=== PATIENT | female | born 1985 | race Caucasian/White ===

== ENCOUNTER 2016-08-01 20:29 | Emergency (ER) | payer MEDICAID ==
[~2016-08-01] VITALS: Ht 172.7 cm; Wt 100.0 kg
[~2016-08-01 20:29] MED LIST: ADDE10 PO; BUSP10TA PO; CYCL5TAB PO; HYDR25TA5 PO; LORA-520 PO; MOBI15TA PO; TOVI4TAB PO; TRAM50TA PO; VENTAER INH
[2016-08-01 20:30] VITALS: BP 180/107; PULSE 83; RESP 18; TEMP 97.7; O2SAT 100
[2016-08-01] MEDS ORDERED: LEVO750T3 PO (22:01)
[2016-08-01] MEDS ORDERED: SODIUM CHLOR 0.9% 1000 ML INJ 1,000 ML IV ONE (22:11)
--- NOTE | 2016-08-01 22:11 | PD ---
HPI Chief Complaint: Flank/Kidney Pain Time Seen by Provider: 22:11 Travel History International Travel<30 days: No Contact w/Intl Traveler<30days: No Traveled to known affect area: No History of Present Illness HPI 30 YO F with PMH of kidney stones presents to the ED for evaluation of 3 day history of 9/10 right-sided flank pain accompanied by nausea, dysuria and increased urgency. Patient denies fever, chills, vomiting, abdominal pain, changes in bowel habits. She saw her primary care provider 3 days ago and was placed on levofloxacin with no improvement of symptoms. PFSH Past Medical History Autoimmune Disease: No Blood Disorders: No Anxiety: Yes Depression: Yes Cancer: No Cardiovascular Problems: No Diminished Hearing: No Gastrointestinal Disorders: Yes GERD: Yes Genitourinary: Yes (RIGHT KIDNEY REFLUX, UTI) Headaches: Yes Hypertension: Yes Immune Disorder: No Implanted Vascular Access Dvce: No Kidney Stones: Yes Musculoskeletal: Yes (hx of right side lower back pain) Neurologic: No Psychiatric: No Reproductive: No Respiratory: No Immunizations Current: Yes Influenza Vaccination: No PNEUMOCCOCAL Vaccine (Year): 2 ?: Not : 1 Para: 1 Miscarriage: 0 : 0 Past Surgical History Surgical History: No Previous Surgery Other Surgery: No Social History Alcohol Use: No Tobacco Use: No (quit 2011 smoked 2 ppd cigs for 1 1/2 yrs) Substance Use: No Allergies-Medications (Allergen,Severity, Reaction): Coded Allergies: Penicillin (Verified Allergy, Severe, 06/25/16) Adhesives (Verified Allergy, Intermediate, rash, 06/25/16) Cipro (Unverified Allergy, Intermediate, hives, 06/25/16) Reported Meds & Prescriptions Reported Meds & Active Scripts Active Tramadol (Tramadol HCl) 50 Mg Tab 50 Mg PO Q8H PRN Bactrim DS (Sulfamethoxazole-Trimethoprim) 800-160 Mg Tab 1 Tab PO BID Toviaz ER (Fesoterodine Fumarate) 4 mg Ambrocio 4 Mg PO DAILY Reported Levofloxacin 750 Mg Tablet 750 Mg PO DAILY Adderall (Amphetamine-Dextroamphetamine) 10 Mg Tab 10 Mg PO DAILY Avoid late evening doses. Space doses at least 4 to 6 hours if more than once/day dosing. Buspirone (Buspirone HCl) 10 Mg Tab 10 Mg PO TID Hydrochlorothiazide 25 Mg Tab 25 Mg PO DAILY Mobic (Meloxicam) 15 Mg Tab 15 Mg PO DAILY Ventolin Hfa 18 GM Inh (Albuterol Sulfate) 90 Mcg/Act Aer 2 Puff INH Q4-6H PRN Allergy (Loratadine) 10 Mg Tab 10 Mg PO DAILY Review of Systems Except as stated in HPI: all other systems reviewed are Neg Physical Exam Narrative GENERAL: Well-nourished, well-developed obese white female in no acute distress. SKIN: Focused skin assessment warm/dry. HEAD: Normocephalic. EYES: No scleral icterus. No injection or drainage. NECK: Supple, trachea midline. No JVD or lymphadenopathy. CARDIOVASCULAR: Regular rate and rhythm without murmurs, gallops, or rubs. RESPIRATORY: Breath sounds equal bilaterally. No accessory muscle use. GASTROINTESTINAL: Abdomen soft, non-tender, nondistended. No suprapubic tenderness. Active bowel sounds. MUSCULOSKELETAL: No cyanosis, or edema. BACK: Nontender without obvious deformity. ++ Right-sided ankle pain and CVA tenderness. Data Data Last Documented VS Vital Signs Date Time Temp Pulse Resp B/P Pulse Ox O2 Delivery O2 Flow Rate FiO2 08/01/16 20:30 97.7 83 18 180/107 100 Room Air Orders Urinalysis - C+S If Indicated (08/01/16 21:21) Ed Urine Pregnancytest Poc (08/01/16 21:21) Complete Blood Count With Diff (08/01/16 22:11) Comprehensive Metabolic Panel (08/01/16 22:11) Ct Abd/Pel W/O Iv Contrast (08/01/16 22:11) Ecg Monitoring (08/01/16 22:11) Iv Access Insert/Monitor (08/01/16 22:11) Morphine Inj (Morphine Inj) (08/01/16 22:15) Ondansetron Inj (Zofran Inj) (08/01/16 22:15) Sodium Chloride 0.9% Flush (Ns Flush) (08/01/16 22:15) Sodium Chlor 0.9% 1000 Ml Inj (Ns 1000 M (08/01/16 22:11) Ketorolac Inj (Toradol Inj) (08/01/16 23:15) Labs Laboratory Tests Test 08/01/16 22:00 White Blood Count 11.5 TH/MM3 Red Blood Count 4.50 MIL/MM3 Hemoglobin 12.4 GM/DL Hematocrit 38.1 % Mean Corpuscular Volume 84.5 FL Mean Corpuscular Hemoglobin 27.6 PG Mean Corpuscular Hemoglobin 32.7 % Concent Red Cell Distribution Width 13.6 % Platelet Count 280 TH/MM3 Mean Platelet Volume 7.3 FL Neutrophils (%) (Auto) 60.0 % Lymphocytes (%) (Auto) 31.9 % Monocytes (%) (Auto) 6.8 % Eosinophils (%) (Auto) 1.1 % Basophils (%) (Auto) 0.2 % Neutrophils # (Auto) 6.9 TH/MM3 Lymphocytes # (Auto) 3.7 TH/MM3 Monocytes # (Auto) 0.8 TH/MM3 Eosinophils # (Auto) 0.1 TH/MM3 Basophils # (Auto) 0.0 TH/MM3 CBC Comment DIFF FINAL Differential Comment Urine Color YELLOW Urine Turbidity HAZY Urine pH 6.0 Urine Specific [place] 1.031 Urine Protein 30 mg/dL Urine Glucose (UA) NEG mg/dL Urine Ketones NEG mg/dL Urine Occult Blood LARGE Urine Nitrite NEG Urine Bilirubin NEG Urine Urobilinogen LESS THAN 2.0 MG/DL Urine Leukocyte Esterase SMALL Urine RBC /hpf Urine WBC 1 /hpf Urine Squamous Epithelial 1 /hpf Cells Urine Mucus FEW /lpf Microscopic Urinalysis Comment CULT NOT INDICATED Sodium Level 141 MEQ/L Potassium Level 3.7 MEQ/L Chloride Level 107 MEQ/L Carbon Dioxide Level 26.8 MEQ/L Anion Gap 7 MEQ/L Blood Urea Nitrogen 11 MG/DL Creatinine 0.79 MG/DL Estimat Glomerular Filtration 87 ML/MIN Rate Random Glucose 94 MG/DL Calcium Level 8.5 MG/DL Total Bilirubin 0.3 MG/DL Aspartate Amino Transf 12 U/L (AST/SGOT) Alanine Aminotransferase 25 U/L (ALT/SGPT) Alkaline Phosphatase 77 U/L Total Protein 7.4 GM/DL Albumin 3.7 GM/DL [facility] Medical Decision Making Medical Screen Exam Complete: Yes Emergency Medical Condition: Yes Differential Diagnosis Cystitis versus pyelonephritis versus nephroureterolithiasis versus other Narrative Course 30 YO F with PMH of kidney stones presents to the ED for evaluation of 3 day history of 9/10 right-sided flank pain accompanied by nausea, dysuria and increased urgency. Patient denies fever, chills, vomiting, abdominal pain, changes in bowel habits. She saw her primary care provider 3 days ago and was placed on levofloxacin with no improvement of symptoms. Vitals reviewed. Physical exam reveals an obese white female with right flank tenderness, otherwise unremarkable. She was administered 4 mg morphine, 4 mg Zofran and 1 L normal saline bolus IV. No concerning underwent always a CBC or CMP. UA with innumerable red blood cells, no culture indicated. CT reveals no hydronephrosis, ureteral dilatation or stone. I discussed the patient with Dr. Driscoll. He recommends discontinuing the Levaquin, initiating Septra, a brief course of pain medications and outpatient follow-up. I discussed the results of the workup with the patient and the plan for care. She is instructed take medication as prescribed, return for worsening symptoms, otherwise follow up with primary care provider. She indicated understanding of instructions and is agreeable care plan. Patient is stable and discharged home. Diagnosis Primary Impression: Right flank pain Additional Impression: Hematuria Referrals: Primary Care Physician Patient Instructions: Flank Pain (ED), General Instructions Additional Instructions: Rest, hydrate. Take antibiotics as prescribed. Take pain medications as prescribed. Do not drive while taking pain medications. Follow up with the primary care provider on Thursday. Return to the ED for worsening symptoms or any urgent or emergent medical condition. Med/Other Pt SpecificInfo: Prescription(s) given Scripts Tramadol 50 Mg Tab50 Mg PO Q8H PRN (PAIN) #15 TAB Ref 0 Prov:Dominguez Driscoll MD 08/01/16 Sulfamethoxazole-Trimethoprim (Bactrim DS)800-160 Mg Tab1 Tab PO BID #14 TAB Ref 0 Prov:Dominguez Driscoll MD 08/01/16 Disposition: 01 DISCHARGE HOME Condition: Stable Shreya Adame Aug 01, 2016 22:11
[2016-08-01] MEDS ORDERED: SODIUM CHLORIDE 0.9% FLUSH 10 ML FLUSH IVF PRN (22:15)
[2016-08-01] MEDS ORDERED: MORPHINE SULFATE 4 MG/ML INJ IV ONE (22:15)
[2016-08-01] MEDS ORDERED: ONDANSETRON HCL 4 MG/2 ML VIAL IVP ONE (22:15)
[2016-08-01 22:37] LABS: BLOOD, URINE LARGE (NEG); COMMENT (UR) CULT NOT INDICATED; CULTURE IF INDICATED CULT NOT INDICATED; GLUCOSE,URINE NEG (NEG); KETONE, URINE NEG (NEG); MUCUS URINE FEW /lpf (OCC); NITRITE,URINE NEG (NEG); SQUAMOUS EPITHELIAL CELL URINE 1 /hpf (0-5); URINE COLOR YELLOW (YELLW/STRAW)
[2016-08-01 22:40] LABS: AUTOMATED NEUTROPHIL # 6.9 TH/MM3 (1.8-7.7); BASOPHIL % 0.2 % (0.0-2.0); EOSINOPHIL # 0.1 TH/MM3 (0-0.4); EOSINOPHIL % 1.1 % (0.0-4.0); HEMATOCRIT 38.1 % (35.0-46.0); HEMO FLAGS DIFF FINAL; LYMPH % 31.9 % (9.0-44.0); LYMPHOCYTE # 3.7 TH/MM3 (1.0-4.8); MEAN CELL VOLUME 84.5 FL (80.0-100.0); MEAN CORPUSCULAR HEMOGLOBIN 27.6 PG (27.0-34.0); MEAN CORPUSCULAR HGB CONC 32.7 % (32.0-36.0); MONO % 6.8 % (0.0-8.0); PLATELET COUNT 280 TH/MM3 (150-450); RED CELL DISTRIBUTION WIDTH 13.6 % (11.6-17.2); WHITE BLOOD COUNT 11.5 TH/MM3 (4.0-11.0)
--- NOTE | 2016-08-01 22:54 | RADRPT ---
EXAM DATE/TIME: 08/01/2016 22:20 [facility] COMPARISON: CT ABDOMEN & PELVIS W/O CONTRAST, November 12, 2015, 21:31. INDICATIONS : Right flank pain. ORAL CONTRAST: No oral contrast ingested. RADIATION DOSE: 17.03 CTDIvol (mGy) MEDICAL HISTORY : Renal calculi. SURGICAL HISTORY : None. ENCOUNTER: Initial ACUITY: 3 days PAIN SCALE: 8/10 LOCATION: Right flank abdomen TECHNIQUE: Volumetric scanning of the abdomen and pelvis was performed. Using automated exposure control and ad justment of the mA and/or kV according to patient size, radiation dose was kept as low as reasonably achievable to obtain optimal diagnostic quality images. FINDINGS: LOWER LUNGS: Lungs not visualized. LIVER: Visualized portion of the liver within normal limits. SPLEEN: Visualized portion of the spleen within normal limits. PANCREAS: Within normal limits. KIDNEYS: Normal in size and shape. There is no mass, stone, or hydronephrosis. ADRENAL GLANDS: Within normal limits. VASCULAR: There is no aortic aneurysm. BOWEL/MESENTERY: Scattered colonic diverticula. No evidence of acute diverticulitis. No bowel dilatation. No free air or free fluid. Appendix within normal limits. ABDOMINAL WALL: Within normal limits. RETROPERITONEUM: There is no lymphadenopathy. BLADDER: No wall thickening or mass. REPRODUCTIVE: Within normal limits. INGUINAL: There is no lymphadenopathy or hernia. MUSCULOSKELETAL: Within normal limits for patient age. CONCLUSION: No acute findings in the abdomen or pelvis. Tuan Ibrahim MD on August 01, 2016 at 22:47 Board Certified Radiologist. This report was verified electronically.
[2016-08-01 23:04] LABS: ALT (GPT) 25 U/L (10-53); ANION GAP 7 MEQ/L (5-15); AST (GOT) 12 U/L (15-37); BICARBONATE 26.8 MEQ/L (21.0-32.0); BLOOD UREA NITROGEN 11 MG/DL (7-18); CHLORIDE 107 MEQ/L (98-107); GLOMERULAR FILTRATION RATE 87 ML/MIN (>89); POTASSIUM 3.7 MEQ/L (3.5-5.1); SODIUM (NA) 141 MEQ/L (136-145)
[2016-08-01 23:07] LABS: ALKALINE PHOSPHATASE 77 U/L (45-117); TOTAL BILIRUBIN ADULT 0.3 MG/DL (0.2-1.0)
[2016-08-01] MEDS ORDERED: TRAM50TA PO (23:11)
[2016-08-01] MEDS ORDERED: BACT800T5 PO (23:11)
[2016-08-01] MEDS ORDERED: KETOROLAC TROMETHAMINE 30 MG/ML (IVP) VIAL IV PUSH ONE (23:15)
== END 2016-08-01 23:20 | disposition home or self-care (01) ==
LOC: NEPD 20:29
DX: R10.31 Right lower quadrant pain (principal); R31.9 Hematuria, unspecified; I10 Essential (primary) hypertension; K21.9 Gastro-esophageal reflux disease without esophagitis; Z87.442 Personal history of urinary calculi; Z87.891 Personal history of nicotine dependence
CPT/HCPCS: 74176; 80053; 81001; 84703; 85025; 96361; 96374; 96375; 99285; J1885; J2270; J2405; J7030

== ENCOUNTER 2016-08-22 13:12 | Emergency (ER) | payer OTHER, MEDICAID ==
[~2016-08-22] VITALS: Ht 167.6 cm; Wt 120.0 kg
[~2016-08-22 13:12] MED LIST changes: +BACT800T5 PO; -CYCL5TAB PO; +LEVO750T3 PO
[2016-08-22 13:13] VITALS: BP 151/100; PULSE 118; RESP 20; TEMP 97.7; O2SAT 99
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
[2016-08-22] MEDS ORDERED: METHOCARBAMOL 500 MG TAB PO ONE (13:45)
[2016-08-22] MEDS ORDERED: IBUPROFEN 600 MG TAB PO ONE (13:45)
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
[2016-08-22] MEDS ORDERED: ROBA750T PO (14:56)
[2016-08-22] MEDS ORDERED: IBUP-232 PO (14:56)
== END 2016-08-22 15:31 | disposition home or self-care (01) ==
LOC: NEPD 13:12
DX: S29.011A Strain of muscle and tendon of front wall of thorax, initial encounter (principal); F41.9 Anxiety disorder, unspecified; F32.9 Major depressive disorder, single episode, unspecified; K21.9 Gastro-esophageal reflux disease without esophagitis; N13.70 Vesicoureteral-reflux, unspecified; I10 Essential (primary) hypertension; J45.909 Unspecified asthma, uncomplicated; V43.52XA Car driver injured in collision with other type car in traffic accident, initial encounter; Z87.442 Personal history of urinary calculi
CPT/HCPCS: 71010; 99283

== ENCOUNTER 2017-10-25 20:56 | Observation (INO) ==
--- NOTE | 2017-10-25 22:08 | XR ---
EXAM DATE: 10/25/2017 10:03 PM EDT AGE/SEX: 32 years / Female INDICATIONS: Chest pain CLINICAL DATA: This is the patient's initial encounter. Patient reports that signs and symptoms have been present for 1 day and indicates a pain score of 9/10. MEDICAL/SURGICAL HISTORY: None. None. COMPARISON: [facility], CHEST 1V SINGLE AP, 09/19/2017. . FINDINGS: A single AP view of the chest demonstrates the lungs to be symmetrically aerated without evidence of mass, infiltrate or effusion. The cardiomediastinal contours are unremarkable. Osseous structures a re intact. CONCLUSION: No acute cardiopulmonary disease. Electronically signed by: Germán Fatima MD 10/25/2017 10:07 PM EDT
[2017-10-25 22:39] LABS: Baso % (Auto) 0.1 % (0.0-2.0); Eos # (Auto) 0.2 th/mm3 (0.0-0.4); Hematocrit 35.3 % (35.0-46.0); Hemoglobin 11.9 gm/dL (11.6-15.3); Lymph # (Auto) 3.2 th/mm3 (1.0-4.8); Lymph % (Auto) 34.2 % (9.0-44.0); Mean Corpuscular HGB Conc 33.8 % (32.0-36.0); Mean Corpuscular Hemoglobin 28.9 pg (27.0-34.0); Mean Corpuscular Volume 85.6 fL (80.0-100.0); Mean Platelet Volume 7.5 fL (7.0-11.0); Mono # (Auto) 0.6 th/mm3 (0.0-0.9); Mono % (Auto) 5.9 % (0.0-8.0); Neut # (Auto) 5.5 th/mm3 (1.8-7.7); Neut % (Auto) 57.8 % (16.0-70.0); Platelet Count 275 th/mm3 (150-450); Red Blood Count 4.12 mil/mm3 (4.00-5.30); Red Cell Distribution Width 13.8 % (11.6-17.2); White Blood Count 9.5 th/mm3 (4.0-11.0)
[2017-10-25 23:05] LABS: Albumin 3.3 g/dL (3.4-5.0); Anion Gap 12 meq/L (5-15); Aspartate Aminotransferase 18 U/L (15-37); Blood Urea Nitrogen 7 mg/dL (7-18); Calcium 8.4 mg/dL (8.5-10.1); Carbon Dioxide 21.5 meq/L (21.0-32.0); Chloride 108 meq/L (98-107); Glomerular Filtration Rate 70 mL/min (>89); Glucose,Random 179 mg/dL (74-106); Lipase 195 U/L (73-393); Potassium 3.8 meq/L (3.5-5.1); Sodium 141 meq/L (136-145)
[2017-10-25 23:06] LABS: Alanine Aminotransferase 30 U/L (10-53)
[2017-10-25 23:11] LABS: Alkaline Phosphatase 81 U/L (45-117); Total Protein 6.8 g/dL (6.4-8.2)
[2017-10-25] MEDS ORDERED: Ketorolac Inj 30 MG/ML (IVP) Vial IV.PUSH ONE (23:25)
--- NOTE | 2017-10-25 23:30 | ED ---
HPI General Chief Complaint: Chest Pain Stated Complaint: Chest Pain Time Seen by Provider: 10/25/17 21:34 Source: patient History of Present Illness HPI narrative: The patient is a 32 year old female who presents to the [facility] emergency department with a history of chest pain for 6 hour duration. Chest pain is sharp, stabbing, and does not radiate. 8/10 on pain scale. Associated with shortness of breath. She notable was recently seen in the ED for back pain that has caused her to be immobile on the couch for several days. She denies cough, recent illness, and fever. She denies any prior history of DVT or PE. She denies any prior history of coronary artery disease. Complete Quality Measures for STEMI Alert Patients Related Data Previous Rx's Medication Instructions Recorded albuterol sulfate 2 inh INHALATION Q4-6H PRN #18 g 09/23/17 epinephrine [EpiPen 2-Norberto] 0.3 mg IM Q10M PRN #2 each 10/08/17 ibuprofen 800 mg PO Q6-8H PRN #20 tab 10/21/17 methocarbamol [Robaxin] 500 mg PO Q6H PRN #20 tab 10/21/17 Allergies Allergy/AdvReac Type Severity Reaction Status Date / Time cephalexin [From Keflex] Allergy Severe Shortness Verified 10/21/17 09:27 of Breath ciprofloxacin Allergy Severe hives Verified 10/21/17 09:27 penicillin G Allergy Severe Hives Verified 10/21/17 09:27 adhesive AdvReac Severe Itching Verified 10/21/17 09:27 Review of Systems Constitutional Reports system reviewed and no additional complaints, except as docu Eyes Reports system reviewed and no additional complaints, except as docu ENT Reports system reviewed and no additional complaints, except as docu Cardiovascular Reports chest pain Respiratory Denies chest congestion, Denies cough, Reports pain on inspiration and Denies dyspnea on exertion Gastrointestinal Reports system reviewed and no additional complaints, except as docu Genitourinary Reports system reviewed and no additional complaints, except as docu Musculoskeletal Reports back pain Neurologic Reports system reviewed and no additional complaints, except as docu and Reports headache(s) REPLACED BY [facility] Surgical History Surgical History No history of previous surgery (Acute) Social History Social History Substance History: No History of Abuse Second Hand Smoke Exposure: No Smoking Status: Never smoker Tobacco Type: Cigarettes How Often Do You Have a Drink Containing Alcohol: Never Recent Travel in [place] within the Last 8 Weeks: No Recent Out of Country Travel within the Last 8 Weeks: No Immunization History Tetanus Immunization: <5 Years Hx Influenza Vaccine This Season: Yes Exam Const General: cooperative and well developed Nutritional Appearance: obese Orientation: alert, awake and oriented x3 HENMT Head: normocephalic and atraumatic Nose: no nasal discharge and no epistaxis Mouth: moist mucous membranes Eyes Sclera: normal sclerae Pupils: PERRL Neck Neck: trachea midline and no JVD Chest Chest: tenderness costochondral junction Resp Effort & Inspection: no use of accessory muscles Auscultation: clear to auscultation bilaterally Cardio Rate: regular rate Rhythm: regular rhythm Heart Sounds: no murmurs GI Inspection: non-distended Palpation: soft, no hepatosplenomegaly and nontender Skin General: dry skin (warm) Neuro General: alert and awake Cranial Nerves: CN's II-XI intact bilaterally Speech: speech normal Motor: no movement abnormalities noted Extrem General: normal to inspection, no clubbing, no cyanosis and no edema Psych Mood: congruent mood Affect: normal affect Judgment: judgment good Course Initial Documented Vital Signs Temperature 97.6 F 10/25/17 21:24 Pulse Rate 80 10/25/17 21:24 Respiratory Rate 16 10/25/17 21:24 Blood Pressure 144/84 H 10/25/17 21:24 Pulse Oximetry 98 10/25/17 21:24 Last Documented Vital Signs Temperature 97.4 F L 10/26/17 11:40 Pulse Rate 74 10/26/17 11:40 Respiratory Rate 16 10/26/17 11:40 Blood Pressure 144/87 H 10/26/17 11:40 Pulse Oximetry 97 10/26/17 11:40 Medical Decision Making MDM Narrative Medical decision making narrative: During the course of the patient's emergency department visit, the patient's history, examination, and differential diagnosis were reviewed with the patient. The patient was placed on a office nurse practitioner with oximetry and frequent blood pressure monitoring. The patient had IV access obtained and blood work sent for analysis. A diagnostic evaluation was started regarding the patient's chest pain. The patient was initially provided Nitroglycerin sublingual, aspirin 324 mg p.o. x1. The patient continued to have pain and was given a trial of Toradol p.o. The patient's diagnostic studies are remarkable for CBC is unremarkable, PT 9.1 , INR 0.9, PTT 24.9, d-dimer is 0.27 decreasing likelihood of pulmonary embolism in this patient with no other significant risk factors. CMP is remarkable for glucose of 179, initial set of cardiac enzymes are negative, BNP is within normal limits, the patient's chest x-ray shows no acute cardiopulmonary disease. The patient was agreeable with the plan to proceed with admission to the chest pain center for rule out serial cardiac enzyme protocol followed by consideration of stress testing Medical Screen Exam Complete: Yes Emergency Medical Condition: Yes Differential Diagnosis Differential Diagnosis: acute VA vs PE vs costochondritis Medical Records Medical records reviewed: Yes I reviewed the patient's medical records. Lab Data Lab results reviewed: Yes I reviewed the patient's lab results. Result diagrams: 10/25/17 22:00 10/25/17 22:00 POC Results POC Urine Results Negative Lab Results 10/25/17 10/25/17 10/25/17 Range/Units 22:00 22:00 22:00 WBC 9.5 (4.0-11.0) th/mm3 RBC 4.12 (4.00-5.30) mil/mm3 Hgb 11.9 (11.6-15.3) gm/dL Hct 35.3 (35.0-46.0) % MCV 85.6 (80.0-100.0) fL MCH 28.9 (27.0-34.0) pg MCHC 33.8 (32.0-36.0) % RDW 13.8 (11.6-17.2) % Plt Count 275 (150-450) th/mm3 MPV 7.5 (7.0-11.0) fL Neut % (Auto) 57.8 (16.0-70.0) % Lymph % (Auto) 34.2 (9.0-44.0) % Gordon % (Auto) 5.9 (0.0-8.0) % Eos % (Auto) 2.0 (0.0-4.0) % Baso % (Auto) 0.1 (0.0-2.0) % Neut # (Auto) 5.5 (1.8-7.7) th/mm3 Lymph # (Auto) 3.2 (1.0-4.8) th/mm3 Gordon # (Auto) 0.6 (0.0-0.9) th/mm3 Eos # (Auto) 0.2 (0.0-0.4) th/mm3 Baso # (Auto) 0.0 (0.0-0.2) th/mm3 WBC Differential . Differential Comment Auto diff final ESR (0-20) mm/hr PT (9.8-11.6) sec INR Ratio APTT (24.3-30.1) sec D-Dimer Quant (PE/DVT) 0.27 (0.00-0.50) mg/L FEU Sodium 141 (136-145) meq/L Potassium 3.8 (3.5-5.1) meq/L Chloride 108 H (98-107) meq/L Carbon Dioxide 21.5 (21.0-32.0) meq/L Anion Gap 12 (5-15) meq/L BUN 7 (7-18) mg/dL Creatinine 0.94 (0.50-1.00) mg/dL Estimated GFR 70 L (>89) mL/min Random Glucose 179 H (74-106) mg/dL Calcium 8.4 L (8.5-10.1) mg/dL Magnesium (1.5-2.5) mg/dL Total Bilirubin 0.3 (0.2-1.0) mg/dL AST 18 (15-37) U/L ALT 30 (10-53) U/L Alkaline Phosphatase 81 (45-117) U/L Total Creatine Kinase (26-192) U/L Troponin I Less than 0.02 L (0.02-0.05) ng/mL B-Natriuretic Peptide (0-100) pg/mL Total Protein 6.8 (6.4-8.2) g/dL Albumin 3.3 L (3.4-5.0) g/dL Lipase 195 (73-393) U/L 10/25/17 10/25/17 10/25/17 Range/Units 22:00 22:00 22:00 WBC (4.0-11.0) th/mm3 RBC (4.00-5.30) mil/mm3 Hgb (11.6-15.3) gm/dL Hct (35.0-46.0) % MCV (80.0-100.0) fL MCH (27.0-34.0) pg MCHC (32.0-36.0) % RDW (11.6-17.2) % Plt Count (150-450) th/mm3 MPV (7.0-11.0) fL Neut % (Auto) (16.0-70.0) % Lymph % (Auto) (9.0-44.0) % Gordon % (Auto) (0.0-8.0) % Eos % (Auto) (0.0-4.0) % Baso % (Auto) (0.0-2.0) % Neut # (Auto) (1.8-7.7) th/mm3 Lymph # (Auto) (1.0-4.8) th/mm3 Gordon # (Auto) (0.0-0.9) th/mm3 Eos # (Auto) (0.0-0.4) th/mm3 Baso # (Auto) (0.0-0.2) th/mm3 WBC Differential Differential Comment ESR (0-20) mm/hr PT 9.1 L (9.8-11.6) sec INR 0.9 Ratio APTT 24.9 (24.3-30.1) sec D-Dimer Quant (PE/DVT) (0.00-0.50) mg/L FEU Sodium (136-145) meq/L Potassium (3.5-5.1) meq/L Chloride (98-107) meq/L Carbon Dioxide (21.0-32.0) meq/L Anion Gap (5-15) meq/L BUN (7-18) mg/dL Creatinine (0.50-1.00) mg/dL Estimated GFR (>89) mL/min Random Glucose (74-106) mg/dL Calcium (8.5-10.1) mg/dL Magnesium 2.0 (1.5-2.5) mg/dL Total Bilirubin (0.2-1.0) mg/dL AST (15-37) U/L ALT (10-53) U/L Alkaline Phosphatase (45-117) U/L Total Creatine Kinase 94 (26-192) U/L Troponin I (0.02-0.05) ng/mL B-Natriuretic Peptide 23 (0-100) pg/mL Total Protein (6.4-8.2) g/dL Albumin (3.4-5.0) g/dL Lipase (73-393) U/L 10/26/17 10/26/17 10/26/17 Range/Units 01:15 04:30 08:33 WBC (4.0-11.0) th/mm3 RBC (4.00-5.30) mil/mm3 Hgb (11.6-15.3) gm/dL Hct (35.0-46.0) % MCV (80.0-100.0) fL MCH (27.0-34.0) pg MCHC (32.0-36.0) % RDW (11.6-17.2) % Plt Count (150-450) th/mm3 MPV (7.0-11.0) fL Neut % (Auto) (16.0-70.0) % Lymph % (Auto) (9.0-44.0) % Gordon % (Auto) (0.0-8.0) % Eos % (Auto) (0.0-4.0) % Baso % (Auto) (0.0-2.0) % Neut # (Auto) (1.8-7.7) th/mm3 Lymph # (Auto) (1.0-4.8) th/mm3 Gordon # (Auto) (0.0-0.9) th/mm3 Eos # (Auto) (0.0-0.4) th/mm3 Baso # (Auto) (0.0-0.2) th/mm3 WBC Differential Differential Comment ESR 30 H (0-20) mm/hr PT (9.8-11.6) sec INR Ratio APTT (24.3-30.1) sec D-Dimer Quant (PE/DVT) (0.00-0.50) mg/L FEU Sodium (136-145) meq/L Potassium (3.5-5.1) meq/L Chloride (98-107) meq/L Carbon Dioxide (21.0-32.0) meq/L Anion Gap (5-15) meq/L BUN (7-18) mg/dL Creatinine (0.50-1.00) mg/dL Estimated GFR (>89) mL/min Random Glucose (74-106) mg/dL Calcium (8.5-10.1) mg/dL Magnesium (1.5-2.5) mg/dL Total Bilirubin (0.2-1.0) mg/dL AST (15-37) U/L ALT (10-53) U/L Alkaline Phosphatase (45-117) U/L Total Creatine Kinase 72 70 (26-192) U/L Troponin I Less than 0.02 L Less than 0.02 L (0.02-0.05) ng/mL B-Natriuretic Peptide (0-100) pg/mL Total Protein (6.4-8.2) g/dL Albumin (3.4-5.0) g/dL Lipase (73-393) U/L Imaging Data Radiologist's impression: Chest X-Ray 10/25/17 21:49 CONCLUSION: No acute cardiopulmonary disease. ECG Data Attestation: I personally reviewed and interpreted this ECG as follows: Interpretation: The patient had a EKG done on arrival. The patient's EKG shows a sinus rhythm heart rate is 77, QRS duration is 86 ms, QTC 402 ms. The patient has voltage criteria met for LVH. The patient has Q's noted in lead III , aVF. No acute ST segment elevation, T waves are inverted in V1. Discharge Plan Discharge Disposition Patient Disposition: 32 Still Patient Discharge Condition Condition: Stable Discharge Order Discharge Orders: Discharge Order (Routine); Ordered 10/26/17 Ordered By: Bryan Taylor Discharge Details Diagnosis: Chest pain, rule out acute myocardial infarction Physicians Team ED Provider: Nelida Rose Primary Care Provider: Primary Care Maria Guadalupe Orr Attending Provider: Ac Kennedy Other Providers: [facility],Insurance Status ED Status: Left Department Discharge Information Discharge Date/Time: 10/26/17 01:48
[2017-10-26] MEDS ORDERED: Acetaminophen 500 MG Tablet PO PRN (01:09)
[2017-10-26 01:11] LABS: Activated Partial Thrombo Time 24.9 sec (24.3-30.1); INR 0.9 Ratio; Prothrombin Time 9.1 sec (9.8-11.6)
[2017-10-26 01:51] LABS: Creatine Kinase 72 U/L (26-192)
[2017-10-26] MEDS ORDERED: Morphine Inj 4 MG/ML Vial IV.PUSH SCH (02:30)
[2017-10-26 05:18] LABS: Creatine Kinase 70 U/L (26-192)
[2017-10-26] MEDS ORDERED: Ketorolac Inj 30 MG/ML (IVP) Vial IV.PUSH ONE (09:00)
--- NOTE | 2017-10-26 09:10 | P.HPCA ---
History of Present Illness Primary Care Physician: No Primary Care Physician Chief Complaint: Chest pain History of Present Illness: This is a 32-year-old female that presents to ED with a complaint of developing a stabbing chest discomfort yesterday. States his been intermittently occurring since. He steps less about 5 or 10 minutes. Found nothing in particular bring on the discomfort. Denies associated shortness of breath, nausea, diaphoresis. 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 Currently denies discomfort. Denies . Patient states she is a non-smoker. States that her father had a pacemaker. Denies hypertension, hyperlipidemia, diabetes, and known CAD. - Diagnosis (1) Chest pain Review of Systems General: Patient denies fevers, chills, and recent travel. HEENT: Patient denies headache, sore throat, difficulty swallowing. Cardiovascular: Has the chest discomfort as mentioned above. Denies sensation of heart beating rapidly or irregularly. No syncope. Denies diaphoresis. Respiratory: Denies shortness of breath or inspirational chest discomfort. Denies coughing wheezing or hemoptysis. GI: Patient denies nausea, vomiting, diarrhea, abdominal pain, bloody stools. Musculoskeletal: Patient denies joint pain or edema. Denies calf pain or edema. Neurovascular: Patient denies numbness, tingling, weakness in extremities. Denies headache. Endocrine: Denies polyuria and polydipsia. Hematologic: Denies easy bruising. Skin: Denies rash or itching. PMFSH - History History Provided By: Patient - Medical History Medical History: Medical History (Last Reviewed 10/21/17 @ 10:03 by MAYELA Pedraza) Asthma (Acute) Nephropathy of right kidney due to vesicoureteral reflux (Acute) - Surgical History Surgical History: Surgical History (Last Updated 10/21/17 @ 09:31 by Tawana Dalal) No history of previous surgery (Acute) - Tobacco History Second Hand Smoke Exposure: No Smoking Status: Never smoker Tobacco Type: Cigarettes - Alcohol History How Often Do You Have a Drink Containing Alcohol: Never - Substance Use History Substance History: No History of Abuse - Travel History Recent Travel in the [place] Within the Last 8 Weeks: No Recent Travel Out of the Country Within the Last 8 Weeks: No - Immunization History Tetanus Immunization: <5 Years Hx Influenza Vaccine This Season: Yes Medications and Allergies Active Medications: Active Medications Acetaminophen (Tylenol) 500 mg PO Q4H PRN PRN Reason: HEADACHE Sodium Chloride (Ns Flush) 2 ml IV.FLUSH UNSCH PRN PRN Reason: FLUSH AFTER USING IV ACCESS Sodium Chloride (Ns Flush) 2 ml IV.FLUSH PRN PRN PRN Reason: FLUSH AFTER USING IV ACCESS Sodium Chloride (Ns Flush) 2 ml IV.FLUSH BID MACKENZIE Last Admin: 10/26/17 08:37 Dose: 2 ml Allergies Allergy/AdvReac Type Severity Reaction Status Date / Time cephalexin [From Keflex] Allergy Severe Shortness Verified 10/21/17 09:27 of Breath ciprofloxacin Allergy Severe hives Verified 10/21/17 09:27 penicillin G Allergy Severe Hives Verified 10/21/17 09:27 adhesive AdvReac Severe Itching Verified 10/21/17 09:27 Exam Vital signs: Vital Signs 10/25/17 21:24 10/26/17 03:47 10/26/17 08:22 Temperature 97.6 F 97.5 F L 97.7 F Pulse Rate 80 70 70 Respiratory Rate 16 19 18 Blood Pressure 144/84 H 122/76 157/81 H Pulse Oximetry 98 97 98 10/26/17 08:51 Temperature Pulse Rate 69 Respiratory Rate Blood Pressure Pulse Oximetry Intake & Output 10/25/17 10/26/17 10/26/17 18:59 06:59 18:59 Weight 123.831 kg Other: # Voids 1 Date of Last Bowel Movement 10/25/17 # Bowel Movements 1 Weight On Admission 123.831 kg Narrative: GENERAL: This is a well-nourished, well-developed patient, in no apparent distress. Patient speaks in clear complete sentences. Patient is pleasant. HEENT: Head is atraumatic and normocephalic. Neck is supple without lymphadenopathy and trachea is midline. No JVD or carotid bruits. CARDIOVASCULAR: Regular rate and rhythm without murmurs, gallops, or rubs. RESPIRATORY: Clear to auscultation. Breath sounds equal bilaterally. No wheezes , rales, or rhonchi. Chest wall is tender reproducing the discomfort that brought her to the ED. No use of accessory muscles. GASTROINTESTINAL: Abdomen is nontender, nondistended. Abdomen soft. No obvious pulsatile mass or bruit. No CVA tenderness. Strong femoral pulses bilaterally. Normal bowel sounds in all quadrants. MUSCULOSKELETAL: Patient is moving upper and lower extremities freely. No calf tenderness or edema, no Homans sign. Strong pulses in upper and lower extremities. NEUROLOGICAL: Patient is alert and oriented. Cranial nerves 2-12 are grossly intact. No focal deficits and speech is clear. SKIN: No rash and turgor is normal. Results 10/25/17 22:00 10/25/17 22:00 Cardiac Enzymes 10/25/17 10/25/17 10/26/17 Range/Units 22:00 22:00 01:15 AST 18 (15-37) U/L Troponin I Less than 0.02 L Less than 0.02 L (0.02-0.05) ng/mL B-Natriuretic Peptide 23 (0-100) pg/mL 10/26/17 Range/Units 04:30 AST (15-37) U/L Troponin I Less than 0.02 L (0.02-0.05) ng/mL B-Natriuretic Peptide (0-100) pg/mL Coagulation 10/25/17 10/25/17 Range/Units 22:00 22:00 PT 9.1 L (9.8-11.6) sec APTT 24.9 (24.3-30.1) sec B-Natriuretic Peptide 23 (0-100) pg/mL CBC 10/25/17 Range/Units 22:00 WBC 9.5 (4.0-11.0) th/mm3 RBC 4.12 (4.00-5.30) mil/mm3 Hgb 11.9 (11.6-15.3) gm/dL Hct 35.3 (35.0-46.0) % Plt Count 275 (150-450) th/mm3 Neut # (Auto) 5.5 (1.8-7.7) th/mm3 Lymph # (Auto) 3.2 (1.0-4.8) th/mm3 [place] # (Auto) 0.6 (0.0-0.9) th/mm3 Eos # (Auto) 0.2 (0.0-0.4) th/mm3 Baso # (Auto) 0.0 (0.0-0.2) th/mm3 Comprehensive Metabolic Panel 10/25/17 Range/Units 22:00 Sodium 141 (136-145) meq/L Potassium 3.8 (3.5-5.1) meq/L Chloride 108 H (98-107) meq/L Carbon Dioxide 21.5 (21.0-32.0) meq/L BUN 7 (7-18) mg/dL Creatinine 0.94 (0.50-1.00) mg/dL Calcium 8.4 L (8.5-10.1) mg/dL AST 18 (15-37) U/L ALT 30 (10-53) U/L Alkaline Phosphatase 81 (45-117) U/L Total Protein 6.8 (6.4-8.2) g/dL Albumin 3.3 L (3.4-5.0) g/dL Intake and Output 10/25/17 10/26/17 10/26/17 22:59 06:59 14:59 Other: # Voids 1 Date of Last Bowel Movement 10/25/17 # Bowel Movements 1 Weight 123.831 kg Weight On Admission 123.831 kg EKG interpretations - EKG EKG shows: sinus rhythm (EKGs are sinus rhythm without significant ST segment depressions or elevations.) Caprini VTE Risk Assessment Caprini VTE Risk Assessment: No/Low Risk (score <= 1) Caprini Risk Assessment Model: Point Value = 1 Point Value = 2 Point Value = 3 Point Value = 5 Age 41-60 Minor surgery BMI > 25 kg/m2 Swollen legs Varicose veins or History of unexplained or recurrent spontaneous Oral contraceptives or hormone replacement Sepsis (< 1 month) Serious lung disease, including pneumonia (< 1 month) Abnormal pulmonary function Acute myocardial infarction Congestive heart failure (< 1 month) History of inflammatory bowel disease Medical patient at bed rest Age 61-74 Arthroscopic surgery Major open surgery (> 45 min) Laparoscopic surgery (> 45 min) Malignancy Confined to bed (> 72 hours) Immobilizing plaster cast Central venous access Age >= 75 History of VTE Family history of VTE Factor V Leiden Prothrombin [id number] Lupus anticoagulant Anticardiolipin antibodies Elevated serum homocysteine Heparin-induced thrombocytopenia Other congenital or acquired thrombophilia Stroke (< 1 month) Elective arthroplasty Hip, pelvis, or leg fracture Acute spinal cord injury (< 1 month) Prophylaxis Regimen: Total Risk Factor Score Risk Level Prophylaxis Regimen 0-1 Low Early ambulation 2 Moderate Order ONE of the following: *Sequential Compression Device (SCD) *Heparin 5000 units SQ BID 3-4 Higher Order ONE of the following medications: *Heparin 5000 units SQ TID *Enoxaparin/Lovenox 40 mg SQ daily (WT < 150 kg, CrCl > 30 mL/min) *Enoxaparin/Lovenox 30 mg SQ daily (WT < 150 kg, CrCl > 10-29 mL/min) *Enoxaparin/Lovenox 30 mg SQ BID (WT < 150 kg, CrCl > 30 mL/min) AND/OR *Sequential Compression Device (SCD) 5 or more Highest Order ONE of the following medications: *Heparin 5000 units SQ TID (Preferred with Epidurals) *Enoxaparin/Lovenox 40 mg SQ daily (WT < 150 kg, CrCl > 30 mL/min) *Enoxaparin/Lovenox 30 mg SQ daily (WT < 150 kg, CrCl > 10-29 mL/min) *Enoxaparin/Lovenox 30 mg SQ BID (WT < 150 kg, CrCl > 30 mL/min) AND *Sequential Compression Device (SCD) Assessment and Plan - Assessment (1) Chest pain Code(s): R07.9 - Chest pain, unspecified Status: Acute - Plan * Chest pain: Patient has had serial cardiac enzymes and EKGs for ruling out purposes. Her symptoms are atypical. Seem to be reproducible. Likely musculoskeletal. She was seen by Dr. Leroy Ayers of cardiology in the chest pain center. She will have a Western sed rate obtained and be given a dose of Toradol and likely then be discharged with instructions to follow-up with PCP and return to ED for interval issues. Patient is stable at this time. She is agreeable to this plan. H&P: Quality - VTE Deep Vein Thrombosis/Pulmonary Embolism Present on Admission: No
--- NOTE | 2017-10-26 13:53 | ECG ---
Date Performed: 10/26/2017 Time Performed: 04:19:32 PTAGE: 32 years EKG: SINUS BRADYCARDIA MODERATE VOLTAGE CRITERIA FOR LVH, CONSIDER NORMAL VARIANT ABNORMAL ECG PREVIOUS TRACING : 10/26/2017 01.50 Since previous tracing, no significant change noted DOCTOR: Leroy Ayers Interpretating Date/Time 10/26/2017 13:52:58
--- NOTE | 2017-10-26 13:54 | ECG ---
Date Performed: 10/26/2017 Time Performed: 01:50:08 PTAGE: 32 years EKG: Sinus rhythm BORDERLINE ECG NO PREVIOUS TRACING DOCTOR: Leroy Ayers Interpretating Date/Time 10/26/2017 13:53:32
--- NOTE | 2017-10-26 13:55 | ECG ---
Date Performed: 10/25/2017 Time Performed: 21:27:10 PTAGE: 32 years EKG: Sinus rhythm VOLTAGE CRITERIA FOR LVH ABNORMAL ECG NO PREVIOUS TRACING DOCTOR: Leroy Ayers Interpretating Date/Time 10/26/2017 13:53:59
== END 2017-10-26 12:40 | disposition home or self-care (01) ==
LOC: NEPE 20:56 → NEDA 20:56 → NEPGCP 10-26 01:31
PROVIDERS: ADMIT Internal Medicine Interventional Cardiology; ATTEND Internal Medicine Interventional Cardiology